=== PATIENT | female | born 1945 ===

== ENCOUNTER 2022-08-27 06:26 | Inpatient (IN) ==
[~2022-08-27 06:26] MED LIST: Buffered Lidocaine 1% SYRIN 1 ml INTRADERM ONE; Lactated Ringers 1000 ml BAG 1,000 ML IV SCH
[2022-08-27] MEDS ORDERED: ceFAZolin 2 GM in NS PREMIX 2 GM/100 ML BAG IVPB ONE (06:44)
[2022-08-27] MEDS ORDERED: Tranexamic Acid 1,000 MG in NS 0.9% 50 ML IV ONE (07:00)
[2022-08-27] MEDS ORDERED: Midazolam 2 mg/2 ml VIAL 1 mg/ml 2 ml VIAL (2 mg) ONE (08:00)
[2022-08-27] MEDS ORDERED: Naloxone 0.4 mg VIAL 0.4 mg/ml 1 ml VIAL IV PRN (08:06)
[2022-08-27] MEDS ORDERED: HYDROmorphone 1 MG/1 ML SYRINGE IV PRN (08:06)
[2022-08-27] MEDS ORDERED: ROPIVACAINE 5 MG/ML 30 ML BTL (0.5%) ONE ×3 (08:08→09:53)
[2022-08-27] MEDS ORDERED: Ondansetron 4 mg VIAL 2 MG/ML 2 ml VIAL ONE (08:49)
[2022-08-27] MEDS ORDERED: Propofol 10 MG/ML 20 ML BTL ONE (08:49)
[2022-08-27] MEDS ORDERED: Lidocaine 2% PF 5 ML VIAL ONE (08:49)
[2022-08-27] MEDS ORDERED: fentaNYL 100 mcg/2 ml 50 MCG/ML VIAL ONE (08:51)
[2022-08-27] MEDS ORDERED: Dexamethasone IV 4 MG/ML VIAL 1 ml VIAL ONE (08:52)
[2022-08-27] MEDS ORDERED: Ketamine HCL 50 mg/ml 10 ml VIAL (500 MG) ONE (10:09)
[2022-08-27] MEDS ORDERED: Phenylephrine 40 mcg/mL 10mL (400mcg) SYRINGE ONE (10:16)
[2022-08-27] MEDS ORDERED: Magnesium Hydroxide LIQ 30 ML UDC PO PRN (10:32)
[2022-08-27] MEDS ORDERED: Morphine 2 MG/ML SYRINGE IV PRN (10:32)
[2022-08-27] MEDS ORDERED: Ondansetron 4 mg VIAL 2 MG/ML 2 ml VIAL IV PRN (10:32)
[2022-08-27] MEDS ORDERED: Lactulose 30 ml UDC PO PRN (10:32)
[2022-08-27] MEDS ORDERED: Ondansetron ODT 4 mg TAB 4 MG TAB PO PRN (10:32)
[2022-08-27] MEDS ORDERED: Lactated Ringers 1000 ml BAG 1,000 ML IV SCH (11:00)
[2022-08-27] MEDS: ceFAZolin 1 GM ADVAN 1 GM in NS 0.9% 50 ML 50 ML IVPB SCH (17:49)
[2022-08-27] MEDS: Magnesium Hydroxide LIQ 30 ML UDC PO SCH (21:22)
[2022-08-28] MEDS: ceFAZolin 1 GM ADVAN 1 GM in NS 0.9% 50 ML 50 ML IVPB SCH ×2 (01:46→09:14)
[2022-08-28 06:14] LABS: Hematocrit 34.6 % (35-45); Hemoglobin 11.6 g/dL (11.5-14.3); Mean Platelet Volume 8.6 fL (7.5-11.2); Platelet Count 246 10^3/uL (150-450)
[2022-08-28 06:34] LABS: Creatinine, Serum 0.74 mg/dL (0.51-0.95); Potassium 4.3 mmol/L (3.5-5.0); eGFR CKD-EPI 83.8 (>60)
[2022-08-28] MEDS: Magnesium Hydroxide LIQ 30 ML UDC PO SCH (08:37)
[2022-08-28] MEDS ORDERED: Vitamin THERAPEUTIC TAB PO SCH (09:00)
[2022-08-28 10:30] VITALS: BP 145/78
== END 2022-08-28 15:50 | disposition home or self-care (01) | DRG 470 ==
LOC: AA 06:26 → INTOOBSV 06:26 → SSU 10:32
PROVIDERS: ADMIT Orthopaedic Surgery Adult Reconstructive Orthopaedic Surgery; ATTEND Orthopaedic Surgery Adult Reconstructive Orthopaedic Surgery

== ENCOUNTER 2022-11-14 11:00 | Inpatient (IN) ==
[2022-11-14] MEDS ORDERED: ceFAZolin 2 GM in NS PREMIX 2 GM/100 ML BAG IVPB ONE (13:45)
[2022-11-14 14:00] LABS: Rapid COVID-19 Molecular Undetected (Undetected)
[2022-11-14] MEDS ORDERED: ROPIVACAINE 5 MG/ML 30 ML BTL (0.5%) ONE ×2 (14:43→15:05)
[2022-11-14] MEDS ORDERED: Acetaminophen IV 1 GM/100ML 1,000 MG/100 ML BAG IV PRN (15:22)
[2022-11-14] MEDS ORDERED: HYDROmorphone 1 MG/1 ML SYRINGE IV PRN (15:22)
[2022-11-14] MEDS ORDERED: Naloxone 0.4 mg VIAL 0.4 mg/ml 1 ml VIAL IV PRN (15:22)
[2022-11-14] MEDS ORDERED: Ondansetron 4 mg VIAL 2 MG/ML 2 ml VIAL IV PRN ×2 (15:22→16:44)
[2022-11-14] MEDS ORDERED: fentaNYL 100 mcg/2 ml 50 MCG/ML VIAL IV PRN (15:22)
[2022-11-14] MEDS ORDERED: Midazolam 2 mg/2 ml VIAL 1 mg/ml 2 ml VIAL (2 mg) ONE (15:59)
[2022-11-14] MEDS ORDERED: fentaNYL 100 mcg/2 ml 50 MCG/ML VIAL ONE ×2 (15:59)
[2022-11-14] MEDS ORDERED: Lidocaine 2% PF 5 ML VIAL ONE (16:00)
[2022-11-14] MEDS ORDERED: Propofol 10 MG/ML 20 ML BTL ONE (16:00)
[2022-11-14] MEDS ORDERED: Acetaminophen IV 1 GM/100ML 1,000 MG/100 ML BAG IV ONE (16:05)
[2022-11-14] MEDS ORDERED: Ondansetron 4 mg VIAL 2 MG/ML 2 ml VIAL ONE (16:07)
[2022-11-14] MEDS ORDERED: Dexamethasone IV 4 MG/ML VIAL 1 ml VIAL ONE (16:07)
[2022-11-14] MEDS ORDERED: Phenylephrine IV 10 MG/ML 1 ml VIAL ONE (16:41)
[2022-11-14] MEDS ORDERED: Magnesium Hydroxide LIQ 30 ML UDC PO PRN (16:44)
[2022-11-14] MEDS ORDERED: Morphine 2 MG/ML SYRINGE IV PRN (16:44)
[2022-11-14] MEDS ORDERED: Lactulose 30 ml UDC PO PRN (16:44)
[2022-11-14] MEDS ORDERED: Ondansetron ODT 4 mg TAB 4 MG TAB PO PRN (16:44)
[2022-11-14] MEDS ORDERED: Lactated Ringers 1000 ml BAG 1,000 ML IV SCH (17:00)
[2022-11-14] MEDS ORDERED: Bupivacaine-MPF SPINAL 7.5 MG/ML - 2ML AMP ONE (17:17)
[2022-11-14] MEDS: Magnesium Hydroxide LIQ 30 ML UDC PO SCH (21:38)
[2022-11-14] MEDS: ceFAZolin 1 GM ADVAN 1 GM in NS 0.9% 50 ML 50 ML IVPB SCH (23:13)
[2022-11-15 03:14] LABS: Urine Appearance Clear; Urine Bilirubin Negative (Negative); Urine Blood Negative (Negative); Urine Color Yellow; Urine Glucose 1+(50 mg/dL) (Negative); Urine Ketones Negative (Negative); Urine Nitrite Negative (Negative); Urine Protein Negative (Negative); Urine Specific Gravity 1.015 (1.002-1.030); Urine Urobilinogen Negative (Negative)
[2022-11-15 06:03] LABS: Hematocrit 33.5 % (35-45); Hemoglobin 11.4 g/dL (11.5-14.3); Mean Platelet Volume 8.1 fL (7.5-11.2); Platelet Count 252 10^3/uL (150-450)
[2022-11-15 06:14] LABS: Calcium 9.1 mg/dL (8.6-10.3); Creatinine, Serum 0.73 mg/dL (0.51-0.95); Potassium 4.5 mmol/L (3.5-5.0); eGFR CKD-EPI 84.6 (>60)
[2022-11-15] MEDS: Magnesium Hydroxide LIQ 30 ML UDC PO SCH (07:35)
[2022-11-15] MEDS: ceFAZolin 1 GM ADVAN 1 GM in NS 0.9% 50 ML 50 ML IVPB SCH ×2 (07:37→14:23)
[2022-11-15] MEDS ORDERED: Vitamin THERAPEUTIC TAB PO SCH (09:00)
[2022-11-15 09:55] VITALS: BP 119/61
== END 2022-11-15 15:10 | disposition home or self-care (01) | DRG 470 ==
LOC: AA 13:23 → SSU 16:44
PROVIDERS: ADMIT Orthopaedic Surgery Adult Reconstructive Orthopaedic Surgery; ATTEND Orthopaedic Surgery Adult Reconstructive Orthopaedic Surgery